=== PATIENT | male | born 2000 | race American Indian/Alaskan Native ===

== ENCOUNTER 2018-11-22 19:54 | Emergency (ER) | payer BC, OTHER ==
[2018-11-22] MEDS ORDERED: SMZ./TMP. 800/160 MG TABLET ONE (20:25)
--- NOTE | 2018-11-22 20:28 | EDPHYS ---
Physician Documentation [facility] Name: Gray Macias Age: 18 yrs Sex: Male : 2000 Arrival Date: 11/22/2018 Time: 19:58 Bed 28 Private MD: ED Physician Edgar Daniel HPI: 11/22 20:21 This 18 yrs old Other Male presents to ER via Ambulatory with complaints of finger kb infection. 20:24 The patient presents with an abscess of the dorsal aspect of distal phalanx of left kb little finger. Description: erythematous, swollen, warm. Onset: The symptoms/episode began/occurred 3 day(s) ago. Possible cause(s): unknown. Associated signs and symptoms: Pertinent positives: erythema, swelling. Modifying factors: the symptoms are alleviated by nothing, the symptoms are aggravated by pressure, sitting, squeezing the lesion and expressing the contents, touching. Severity of symptoms: At their worst the symptoms were moderate, in the emergency department the symptoms are unchanged. The patient has not experienced similar symptoms in the past. The patient has not recently seen a physician. Historical: - Allergies: 20:07 No Known Allergies; aj1 - Home Meds: 20:07 None [Active]; aj1 - PMHx: 20:07 None; aj1 - PSHx: 20:07 leg surgery; aj1 - Immunization history:: Flu vaccine is not up to date. - Social history:: Smoking status: Patient uses tobacco products, denies chronic smoking, but will smoke occasionally. - Ebola Screening: : Patient denies travel to an Ebola-affected area in the 21 days before illness onset. ROS: 20:22 Constitutional: Negative for fever, chills, and weight loss, Cardiovascular: Negative kb for chest pain, palpitations, and edema, Respiratory: Negative for shortness of breath, cough, wheezing, and pleuritic chest pain, Abdomen/GI: Negative for abdominal pain, nausea, vomiting, diarrhea, and constipation, MS/Extremity: Negative for injury and deformity, Neuro: Negative for headache, weakness, numbness, tingling, and seizure. 20:22 Skin: Positive for abscess, erythema, swelling, of the dorsal aspect of distal phalanx of left little finger. 20:22 All other systems are negative. Exam: 20:22 Constitutional: This is a well developed, well nourished patient who is awake, alert, kb and in no acute distress. Head/Face: Normocephalic, atraumatic. ENT: Nares patent. No nasal discharge, no septal abnormalities noted. Tympanic membranes are normal and external auditory canals are clear. Oropharynx with no redness, swelling, or masses, exudates, or evidence of obstruction, uvula midline. Mucous membranes moist. Neck: Trachea midline, no thyromegaly or masses palpated, and no cervical lymphadenopathy. Supple, full range of motion without nuchal rigidity, or vertebral point tenderness. No Meningismus. Chest/axilla: Normal chest wall appearance and motion. Nontender with no deformity. No lesions are appreciated. Cardiovascular: Regular rate and rhythm with a normal S1 and S2. No gallops, murmurs, or rubs. Normal PMI, no JVD. No pulse deficits. Respiratory: Lungs have equal breath sounds bilaterally, clear to auscultation and percussion. No rales, rhonchi or wheezes noted. No increased work of breathing, no retractions or nasal flaring. Abdomen/GI: Soft, non-tender, with normal bowel sounds. No distension or tympany. No guarding or rebound. No evidence of tenderness throughout. MS/ Extremity: Pulses equal, no cyanosis. Neurovascular intact. Full, normal range of motion. Neuro: Awake and alert, GCS 15, oriented to person, place, time, and situation. Cranial nerves II-XII grossly intact. Motor strength 5/5 in all extremities. Sensory grossly intact. Cerebellar exam normal. Normal gait. 20:22 Skin: abscess, that is small, of the dorsal aspect of distal phalanx of left little finger, with fluctuance, that is moderate. Vital Signs: 20:08 BP 129 / 74; Pulse 63; Resp 18; Temp 97.6; Pulse Ox 100% on R/A; Weight 90.72 kg (R); aj1 Height 6 ft. 0 in. (182.88 cm) (R); Pain 4/10; 20:08 Body Mass Index 27.12 (90.72 kg, 182.88 cm) aj1 Procedures: 20:25 I \T\ D: Incision and drainage was performed for an abscess of the dorsal aspect of kb distal phalanx of left little finger Prepped with alcohol, Incised with needle. Drained moderate amount purulent fluid. the patient tolerated the procedure well. MDM: 20:10 Patient medically screened. kb 20:19 Data reviewed: vital signs, nurses notes. Data interpreted: Pulse oximetry: on room air kb is 100 %. Interpretation: normal. Counseling: I had a detailed discussion with the patient and/or guardian regarding: the historical points, exam findings, and any diagnostic results supporting the discharge/admit diagnosis, the need for outpatient follow up, a family practitioner, to return to the emergency department if symptoms worsen or persist or if there are any questions or concerns that arise at home. Administered Medications: 20:26 Drug: Bactrim (160 mg-800 mg (DS) 1 tablet Route: PO; rv 20:34 Follow up: Response: No adverse reaction rv Disposition: 11/23 07:10 Co-signature as Attending Physician, Edgar Daniel MD Available for consultation at ps1 all times . Disposition: 11/22/18 20:27 Discharged to Home. Impression: Cutaneous abscess of left hand - paronychia left pinky finger. - Condition is Stable. - Discharge Instructions: Paronychia, [id number]. - Prescriptions for Bactrim DS 800- 160 mg Oral Tablet - take 1 tablet by ORAL route every 12 hours for 7 days; 14 tablet. - Medication Reconciliation Form, Thank You Letter, Antibiotic Education, Prescription Opioid Use, Work release form form. - Follow up: Emergency Department; When: As needed; Reason: Worsening of condition. Follow up: Private Physician; When: 2 - 3 days; Reason: Recheck today's complaints, Continuance of care, Re-evaluation by your physician. Signatures: Anca Cloud FNP-C FNP-Mamie Khan RN RN aj1 Edgar Daniel MD MD ps1 Mario Verma RN RN rv Corrections: (The following items were deleted from the chart) 11/22 20:35 20:27 11/22/2018 20:27 Discharged to Home. Impression: Cutaneous abscess of left hand - rv paronychia left pinky finger. Condition is Stable. Forms are Medication Reconciliation Form, Thank You Letter, Antibiotic Education, Prescription Opioid Use. Follow up: Emergency Department; When: As needed; Reason: Worsening of condition. Follow up: Private Physician; When: 2 - 3 days; Reason: Recheck today's complaints, Continuance of care, Re-evaluation by your physician. kb
--- NOTE | 2018-11-22 20:28 | ER ---
Nurse's Notes [facility] Name: Gray Macias Age: 18 yrs Sex: Male : 2000 Arrival Date: 11/22/2018 Time: 19:58 Bed 28 Private MD: Diagnosis: Cutaneous abscess of left hand-paronychia left pinky finger Presentation: 11/22 20:05 Presenting complaint: Patient states: Swelling to right pinky finger that started on aj1 Tuesday. Patient denies injury to finger. Denies fever. Transition of care: patient was not received from another setting of care. Onset of symptoms was 2018. Risk Assessment: Do you want to hurt yourself or someone else? Patient reports no desire to harm self or others. Initial Sepsis Screen: Does the patient meet any 2 criteria? No. Patient's initial sepsis screen is negative. Does the patient have a suspected source of infection? No. Patient's initial sepsis screen is negative. Care prior to arrival: None. 20:05 Method Of Arrival: Ambulatory aj1 20:05 Acuity: YAS 4 aj1 Triage Assessment: 20:07 General: Appears in no apparent distress. comfortable, Behavior is calm, cooperative, aj1 appropriate for age. Pain: Pain currently is 4 out of 10 on a pain scale. Neuro: Level of Consciousness is awake, alert, obeys commands. Cardiovascular: Patient's skin is warm and dry. Respiratory: Airway is patent Respiratory effort is even, unlabored, Respiratory pattern is regular, symmetrical. Musculoskeletal: Range of motion: limited in DIP of left little finger, PIP of left little finger and MCP of left little finger Swelling present in left pinky finger. Injury Description: Patient denies injury to the area. Historical: - Allergies: 20:07 No Known Allergies; aj1 - Home Meds: 20:07 None [Active]; aj1 - PMHx: 20:07 None; aj1 - PSHx: 20:07 leg surgery; aj1 - Immunization history:: Flu vaccine is not up to date. - Social history:: Smoking status: Patient uses tobacco products, denies chronic smoking, but will smoke occasionally. - Ebola Screening: : Patient denies travel to an Ebola-affected area in the 21 days before illness onset. Screenin:27 Abuse screen: Denies threats or abuse. Denies injuries from another. Nutritional rv screening: No deficits noted. Tuberculosis screening: No symptoms or risk factors identified. Fall Risk None identified. Assessment: 20:26 General: Appears in no apparent distress. comfortable, Behavior is calm, cooperative. rv Pain: Denies pain. Neuro: Level of Consciousness is awake, alert, obeys commands, Oriented to person, place, time, situation. Cardiovascular: Patient's skin is warm and dry. Respiratory: Airway is patent. GI: No signs and/or symptoms were reported involving the gastrointestinal system. : No signs and/or symptoms were reported regarding the genitourinary system. EENT: No signs and/or symptoms were reported regarding the EENT system. Derm: Wound noted dorsal aspect of distal phalanx of left little finger. Musculoskeletal: No signs and/or symptoms reported regarding the musculoskeletal system. Vital Signs: 20:08 BP 129 / 74; Pulse 63; Resp 18; Temp 97.6; Pulse Ox 100% on R/A; Weight 90.72 kg (R); aj1 Height 6 ft. 0 in. (182.88 cm) (R); Pain 4/10; 20:08 Body Mass Index 27.12 (90.72 kg, 182.88 cm) aj1 ED Course: 19:58 Patient arrived in ED. cl3 20:03 Anca Cloud [facility]C [facility]. kb 20:03 Edgar Daniel MD is Attending Physician. kb 20:06 Triage completed. aj1 20:08 Arm band placed on Patient placed in an exam room. aj1 20:23 Mario Verma, RN is Primary Nurse. rv 20:27 Patient has correct armband on for positive identification. Bed in low position. Call rv light in reach. Side rails up X 1. Pulse ox on. NIBP on. 20:34 No provider procedures requiring assistance completed. Patient did not have IV access rv during this emergency room visit. Administered Medications: 20:26 Drug: Bactrim (160 mg-800 mg (DS) 1 tablet Route: PO; rv 20:34 Follow up: Response: No adverse reaction rv Outcome: 20:27 Discharge ordered by . kb 20:34 Discharged to home ambulatory. rv 20:34 Condition: good 20:34 Discharge instructions given to patient, Instructed on discharge instructions, follow up and referral plans. medication usage, Demonstrated understanding of instructions, follow-up care, medications, Prescriptions given X 1. 20:35 Patient left the ED. rv Signatures: Anca Cloud, [place] MARIA ISABEL-Mamie Khan RN RN aj1 Mario Verma RN RN rv [place] Henderson cl3
[2018-11-22 21:22] VITALS: BP 129/74; TEMP 97.6; O2SAT 100
== END 2018-11-22 20:35 | disposition home or self-care (01) ==
LOC: ER 19:54
PROC: 0J9K0ZZ Drainage of Left Hand Subcutaneous Tissue and Fascia, Open Approach (ICD-10-PCS; principal; 2018-11-22)
DX: L02.512 Cutaneous abscess of left hand (principal); L03.012 Cellulitis of left finger
CPT/HCPCS: 99283